=== PATIENT | female | born 1950 | race Caucasian/White ===

== ENCOUNTER 2017-09-22 20:00 | Emergency (ER) | payer OTHER, MEDICARE ==
[~2017-09-22] VITALS: Ht 165.1 cm; Wt 90.9 kg
[2017-09-22] MEDS ORDERED: LOZOL 2.5M2.5 MG/TAB PO (21:05)
[2017-09-22 21:09] LABS: HEMATOCRIT 39.7 % (37.0-47.0); HEMOGLOBIN 13.6 g/dL (12.5-16.0); MEAN CELL VOLUME 88 fl (78-100); MEAN CORPUSCULAR HEMOGLOBIN 30 pg (27-31); MEAN CORPUSCULAR HGB CONC 34 g/dL (33-37); PLATELET COUNT 149 K/mm3 (130-400); RED BLOOD COUNT 4.53 M/mm3 (4.10-5.30); RED CELL DISTRIBUTION WIDTH 13.3 % (11.5-14.5); WHITE BLOOD COUNT 6.6 K/mm3 (4.8-10.8)
[2017-09-22 21:38] LABS: BAND 9 % (0-10); LYMPHOCYTE 21 % (20-51); MONOCYTE 15 % (3-10); NEUTROPHILS 53 % (42-75)
[2017-09-22] MEDS ORDERED: CODEINE/GUAIFE120 M2 PO (21:51)
[2017-09-22 22:04] VITALS: BP 160/61
== END 2017-09-22 22:04 | disposition home or self-care (01) ==
LOC: ED 20:00
PROVIDERS: Family Medicine
DX: R05 Cough (principal); I10 Essential (primary) hypertension